=== PATIENT | female | born 1985 | race Caucasian/White ===

== ENCOUNTER 2019-05-13 17:41 | Emergency (ER) | payer OTHER ==
[~2019-05-13] VITALS: Ht 172.7 cm; Wt 68.0 kg
--- NOTE | ~2019-05-13 | EKG ---
[place], [place] ELECTROCARDIOGRAM REPORT NAME: YAMILETH YOUNG UNIT #: [id number] ROOM: DOCTOR: EPIPHANY DRAFT REPORT BIRTHDATE: [birth year] [facility] Test Date: 2019-05-13 Test Time: 18:36:50 Pat Name: YAMILETH YOUNG Department: Room: Gender: F Pharmacoepidemiologist: Ken Howe : 1985 Requested By: [place] GREEN PA-C Order Number: [id number] Reading MD: Mercy Banegas MD Measurements Intervals [place] Rate: 67 P: 53 DC: 139 QRS: 75 QRSD: 89 T: 42 QT: 396 QTc: 418 Interpretive Statements Sinus rhythm Electronically Signed On 05-14-2019 14:22:44 PDT by Mercy Banegas MD CM:EKGRPT:ELECTROCARDIOGRAM REPORT [id number] [place] GREEN PA-C EPIPHANY DRAFT REPORT [place] GREEN PA-C
[~2019-05-13 17:41] MED LIST: MULTI-VITAMIN1 EACH PO; MULTIPLE VITAMI1 CAP PO; PRENATAL1 TA4; ZOFRAN ODT4 MG SL; ZOFRAN4 MG PO
[2019-05-13 18:17] LABS: BILIRUBIN NEGATIVE (NEGATIVE); BLOOD NEGATIVE (NEGATIVE); CLARITY CLEAR (CLEAR); COLOR YELLOW (YELLOW); GLUCOSE NEGATIVE (NEGATIVE); KETONE NEGATIVE (NEGATIVE); LEUKO ESTERASE NEGATIVE (NEGATIVE); NITRITE NEGATIVE (NEGATIVE); SPECIFIC GRAVITY 1.015 (1.005-1.030); UROBILINOGEN 0.2 E.U./dl (0.2-1.0)
[2019-05-13 18:40] LABS: BACTERIA 1+; WBC 0-2 wbc/hpf (0-5)
[2019-05-13 18:41] LABS: RBC 0-2 rbc/hpf (0-2)
[2019-05-13 18:54] LABS: BASO % 0.6 % (0.0-1.0); EOS # 0.2 10*3/uL (0.0-0.4); HEMATOCRIT 39.4 % (37.0-47.0); HEMOGLOBIN 13.2 g/dl (12.0-16.0); LYMPH # 2.8 10*3/uL (1.3-4.4); LYMPH % 41.9 % (27.0-41.0); MEAN CELL VOLUME 103.4 fl (81.0-99.0); MEAN CORPUSCULAR HGB 34.6 pg (27.0-31.0); MEAN CORPUSCULAR HGB CONC 33.5 g/dl (33.0-37.0); MEAN PLATELET VOLUME 11.3 fl (9.6-12.3); MONO # 0.7 10*3/uL (0.1-1.0); MONO % 10.3 % (3.0-9.0); NEUT # 2.9 10*3/uL (2.3-7.9); NEUT % 43.6 % (47.0-73.0); PLATELET COUNT AUTOMATED 190 10*3/uL (130-400); RED BLOOD COUNT 3.81 10*6/uL (4.10-5.10); RED CELL DISTRI WIDTH 13.5 % (0-14.5); WHITE BLOOD COUNT 6.7 10*3/uL (4.8-10.8)
[2019-05-13 19:17] LABS: ALBUMIN 3.5 gm/dl (3.1-4.5); ALKALINE PHOSPHATASE 56 U/L (45-117); BUN 15 mg/dl (7-24); CHLORIDE 113 mmol/L (98-107); CREATININE 0.79 mg/dL (0.55-1.02); POTASSIUM 4.1 mmol/L (3.5-5.1); SGOT/AST 12 IU/L (3-35); SGPT/ALT 25 U/L (12-78); SODIUM 144 mmol/L (136-145); TOTAL PROTEIN 6.6 gm/dL (6.4-8.2)
[2019-05-13 19:20] LABS: TROPONIN I < 0.015 ng/ml (<0.045)
== END 2019-05-13 20:02 | disposition home or self-care (01) ==
LOC: ED 17:41
PROVIDERS: Physician Assistant
DX: R55 Syncope and collapse (principal); Z79.899 Other long term (current) drug therapy